=== PATIENT | male | born 1965 | race African-American/Black ===

== ENCOUNTER 2016-07-18 07:17 | Emergency (ER) | payer OTHER ==
[~2016-07-18] VITALS: Ht 182.9 cm; Wt 93.0 kg
[2016-07-18 07:17] VITALS: BP 155/96
[2016-07-18] MEDS ORDERED: IBUPROFEN 600 MG TABLET PO ONE ×2 (07:43→08:00)
== END 2016-07-18 09:07 | disposition home or self-care (01) ==
LOC: ER 07:19
DX: S16.1XXA Strain of muscle, fascia and tendon at neck level, initial encounter (principal); F43.10 Post-traumatic stress disorder, unspecified; F41.9 Anxiety disorder, unspecified; V49.9XXA Car occupant (driver) (passenger) injured in unspecified traffic accident, initial encounter; Y93.89 Activity, other specified; Y92.89 Other specified places as the place of occurrence of the external cause; Y99.9 Unspecified external cause status
CPT/HCPCS: 72050; 99284; A4606; Z7610

== ENCOUNTER 2016-08-22 00:03 | Emergency (ER) | payer SELFPAY ==
[~2016-08-22] VITALS: Ht 182.9 cm; Wt 99.8 kg
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
--- NOTE | 2016-08-22 00:56 | NUR ---
DR. LE AT BEDSIDE FOR EVAL.
[2016-08-22] MEDS ORDERED: HYDROCODONE/APAP 5/325MG 1 EACH TABLET ONE (00:57)
[2016-08-22] MEDS ORDERED: HYDROCODONE/APAP 5/325MG 1 EACH TABLET PO ONE (01:00)
--- NOTE | 2016-08-22 01:48 | NUR ---
CALLED TY TO READ XRAYS
--- NOTE | 2016-08-22 02:02 | NUR ---
Patient discharged to home in stable condition. Written and verbal after care instructions given. Patient verbalizes understanding of instruction. ambulatory with a steady gait. pt with right shoulder sling per pt request. dr. iesha mayes.
[2016-08-22 02:13] VITALS: BP 138/89
== END 2016-08-22 02:19 | disposition home or self-care (01) ==
LOC: ER 00:09
DX: S16.1XXA Strain of muscle, fascia and tendon at neck level, initial encounter (principal); S80.02XA Contusion of left knee, initial encounter; F43.10 Post-traumatic stress disorder, unspecified; V49.49XA Driver injured in collision with other motor vehicles in traffic accident, initial encounter; Y93.89 Activity, other specified; Y92.413 State road as the place of occurrence of the external cause; Y99.8 Other external cause status
CPT/HCPCS: 73030-TC; 73564-TC; A4606; Z7610

== ENCOUNTER 2016-12-01 14:22 | Emergency (ER) | payer OTHER ==
[~2016-12-01] VITALS: Ht 182.9 cm; Wt 104.3 kg
--- NOTE | 2016-12-01 14:23 | NUR ---
AAOX3, CAME TO ER C/O HEADACHE AND WEAK X 2 DAYS. SKIN IS WARM AND DRY. RESP IS EVEN AND UNLABORED WITH NAD NOTED. PT GOWNED AND PLACED ON MONITOR. AWAITING MD FOR EVAL.
--- NOTE | 2016-12-01 14:39 | NUR ---
DR FRY AT BS FOR EVAL.
--- NOTE | 2016-12-01 15:00 | NUR ---
Alex miles in [facility] - 12/01/16 at [address] reynolds at
[2016-12-01 15:09] LABS: BASOPHILS % (AUTO) 0.5 % (0.0-2.0); EOSINOPHILS % (AUTO) 0.5 % (0.0-6.0); HEMATOCRIT 46 % (39-51); HEMOGLOBIN 15.6 g/dL (13.5-17.5); LYMPHOCYTES % (AUTO) 46.8 % (20.0-44.0); MEAN CORPUSCULAR HEMOGLOBIN 31 PG (26.0-33.0); MEAN CORPUSCULAR HGB CONC 34 g/dl (31.0-36.0); MEAN CORPUSCULAR VOLUME 92 fL (80-96); MONOCYTES # (AUTO) 0.5 /CMM (0.1-1.30); MONOCYTES % (AUTO) 7.8 % (2.0-12.0); NEUTROPHILS # (AUTO) 2.9 /CMM (1.8-8.9); NEUTROPHILS % (AUTO) 44.4 % (43.0-81.0); PLATELET COUNT (AUTO) 208 /CMM (150-450); RDW COEFFICIENT OF VARIATION 13.2 (11.5-15.0); RED BLOOD CELL COUNT(AUTO) 4.96 MIL/uL (4.5-6.0); WHITE BLOOD COUNT (AUTO) 6.5 K/uL (4.3-11.0)
[2016-12-01 15:20] LABS: CALCIUM, SERUM 8.8 mg/dL (8.5-10.1); CREATININE 1.1 mg/dL (0.6-1.3)
[2016-12-01 16:04] LABS: INR 0.98 (0.87-1.13); PROTHROMBIN TIME 10.5 SECS (9.5-12.7)
[2016-12-01] MEDS ORDERED: KETOROLAC TROMETHAMINE INJ 30 MG/ML VIAL ONE (16:20)
[2016-12-01] MEDS ORDERED: KETOROLAC TROMETHAMINE INJ 60 MG/2 ML VIAL IM ONE (16:30)
--- NOTE | 2016-12-01 16:42 | NUR ---
URINE COLLECTED PER MD ORDERS, SENT TO LAB.
[2016-12-01 16:49] VITALS: BP 138/78
--- NOTE | 2016-12-01 16:57 | NUR ---
PATIENT CLEARED FOR DISCHARGE PER MD. PATIENTS VITALS REMAIN STABLE. HEADACHE RESOLVED. PATIENT GIVEN PRESCRIPTION FOR HEADACHE. DISCHARGE TEACHING PROVIDED. PATIENT VERBALIZES UNDERSTANING. PATIENT DISCHARGED HOME.
== END 2016-12-01 16:57 | disposition home or self-care (01) ==
LOC: ER 14:23
DX: R51 Headache (principal); F43.10 Post-traumatic stress disorder, unspecified; G89.29 Other chronic pain; W19.XXXA Unspecified fall, initial encounter; Y93.89 Activity, other specified; Y92.89 Other specified places as the place of occurrence of the external cause; Y99.8 Other external cause status
CPT/HCPCS: 36415; 70450-TC; 80048-TC; 85025-TC; 85730-TC; 87491; 87591; A4606; J1885; Z7610

== ENCOUNTER 2016-12-02 12:17 | Emergency (ER) | payer OTHER ==
[~2016-12-02] VITALS: Ht 180.3 cm; Wt 90.7 kg
[2016-12-02] MEDS ORDERED: ONDANSETRON HCL/PF 4 MG/2 ML VIAL ONE (12:27)
[2016-12-02] MEDS ORDERED: ONDANSETRON HCL/PF - ER 4 MG/2 ML VIAL IV ONE (12:30)
[2016-12-02 12:40] LABS: BASOPHILS # (AUTO) 0.3 /CMM (0.0-0.2); EOSINOPHILS % (AUTO) 0.7 % (0.0-6.0); HEMATOCRIT 49 % (39-51); HEMOGLOBIN 16.6 g/dL (13.5-17.5); LYMPHOCYTES # (AUTO) 2.5 /CMM (0.8-4.8); LYMPHOCYTES % (AUTO) 38.9 % (20.0-44.0); MEAN CORPUSCULAR HEMOGLOBIN 32 PG (26.0-33.0); MEAN CORPUSCULAR HGB CONC 34 g/dl (31.0-36.0); MEAN CORPUSCULAR VOLUME 92 fL (80-96); MONOCYTES # (AUTO) 0.5 /CMM (0.1-1.30); MONOCYTES % (AUTO) 7.3 % (2.0-12.0); NEUTROPHILS % (AUTO) 49.1 % (43.0-81.0); PLATELET COUNT (AUTO) 212 /CMM (150-450); RDW COEFFICIENT OF VARIATION 12.5 (11.5-15.0); RED BLOOD CELL COUNT(AUTO) 5.27 MIL/uL (4.5-6.0); WHITE BLOOD COUNT (AUTO) 6.4 K/uL (4.3-11.0)
--- NOTE | 2016-12-02 12:45 | NUR ---
PT BIB SELF C/O "FEELING WEAK" AND "POUNDING HEADACHE". NO NEURO DEFICITS NOTED. PT WAS SEEN HERE YESTERDAY AND ENCOURAGED TO INCREASE PO FLUID INTAKE. PT REPORTS HE HAS BEEN DRINKING ADEQUATE AMOUNTS OF WATER SINCE THEN AND "MY PEE IS CLEAR". WHEN ASKED AGAIN ABOUT HEADACHE, PT DENIES SEVERE HEADACHE AND REPORTS ONLY MILD PAIN. PT THEN STATED "I WANTED TO FOLLOW UP WITH THE DOCTOR FROM YESTERDAY". RESP EVEN UNLABORED. SKIN WARM NONDIAPHORETIC. AMBULATORY WITH STEADY GAIT.
[2016-12-02 13:09] LABS: CALCIUM, SERUM 8.8 mg/dL (8.5-10.1); CREATININE 1.2 mg/dL (0.6-1.3); POTASSIUM 3.7 mmol/L (3.5-5.1)
[2016-12-02 13:25] VITALS: BP 137/68
--- NOTE | 2016-12-02 13:25 | NUR ---
IV removed. Catheter intact and site benign. Pressure and 4x4 applied to site. No bleeding noted. Patient discharged to home in stable condition. Written and verbal after care instructions given. Patient verbalizes understanding of instruction.
== END 2016-12-02 13:26 | disposition home or self-care (01) ==
LOC: ER 12:18
DX: T67.5XXA Heat exhaustion, unspecified, initial encounter (principal); F43.10 Post-traumatic stress disorder, unspecified; G89.29 Other chronic pain; M54.9 Dorsalgia, unspecified; Z98.890 Other specified postprocedural states; X19.XXXA Contact with other heat and hot substances, initial encounter; Y93.89 Activity, other specified; Y92.89 Other specified places as the place of occurrence of the external cause; Y99.9 Unspecified external cause status
CPT/HCPCS: 36415; 80048-TC; 85025-TC; A4606; J2405; Z7610

== ENCOUNTER 2017-07-07 20:41 | Emergency (ER) | payer OTHER ==
[~2017-07-07] VITALS: Ht 182.9 cm; Wt 93.0 kg
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
--- NOTE | 2017-07-07 21:55 | NUR ---
LOADER MACHINE MARSII AT BEDSIDE TO EVALUATE PATIENT.
[2017-07-07] MEDS ORDERED: CYCLOBENZAPRINE 10 MG TABLET ONE (22:04)
[2017-07-07] MEDS ORDERED: IBUPROFEN 600 MG TABLET PO ONE ×2 (22:04→22:30)
--- NOTE | 2017-07-07 22:12 | NUR ---
Patient discharged to home in stable condition. Written and verbal after care instructions given. Patient verbalizes understanding of instruction. Patient is ambulatory with steady gait, instructed patient not to drive. vss. nad noted. no further complaints.
[2017-07-07 22:13] VITALS: BP 142/85
[2017-07-07] MEDS ORDERED: CYCLOBENZAPRINE 10 MG TABLET PO ONE (22:30)
== END 2017-07-07 22:14 | disposition home or self-care (01) ==
LOC: ER 20:45
DX: S39.012A Strain of muscle, fascia and tendon of lower back, initial encounter (principal); G89.29 Other chronic pain; F43.10 Post-traumatic stress disorder, unspecified; F10.10 Alcohol abuse, uncomplicated; V49.49XA Driver injured in collision with other motor vehicles in traffic accident, initial encounter; Y93.89 Activity, other specified; Y92.89 Other specified places as the place of occurrence of the external cause; Y99.8 Other external cause status
CPT/HCPCS: 99283; A4606; Z7610

== ENCOUNTER 2018-05-26 13:29 | Emergency (ER) | payer OTHER ==
[~2018-05-26] VITALS: Ht 182.9 cm; Wt 100.7 kg
[2018-05-26 13:47] VITALS: BP 162/93
== END 2018-05-26 14:56 | disposition home or self-care (01) ==
LOC: ER 13:30
DX: J06.9 Acute upper respiratory infection, unspecified (principal); F43.10 Post-traumatic stress disorder, unspecified; G89.29 Other chronic pain; Z98.890 Other specified postprocedural states; Z60.2 Problems related to living alone
CPT/HCPCS: A4606; Z7610

== ENCOUNTER 2018-07-03 15:37 | Emergency (ER) | payer OTHER ==
[~2018-07-03] VITALS: Ht 172.7 cm; Wt 76.2 kg
[2018-07-03 16:20] VITALS: BP 159/89
[2018-07-03] MEDS ORDERED: DEXAMETHASONE SOD PHOSPHATE 4 MG/ML VIAL IV ONE (17:00)
[2018-07-03] MEDS ORDERED: ALBUTEROL FS 2.5 MG/3 ML VIAL.NEB NEB ONE (17:00)
[2018-07-03] MEDS ORDERED: IPRATROPIUM NEB FS 0.5 MG/2.5 ML AMPUL.NEB NEB ONE (17:00)
[2018-07-03] MEDS ORDERED: diphenhydrAMINE HCL 50 MG/ML VIAL IV ONE (17:00)
[2018-07-03] MEDS ORDERED: KETOROLAC TROMETHAMINE INJ 30 MG/ML VIAL IV ONE (17:00)
[2018-07-03] MEDS ORDERED: METOCLOPRAMIDE HCL 10 MG/2 ML VIAL IV ONE (17:00)
[2018-07-03] MEDS ORDERED: IV NS 0.9% 1,000 ML BAG IV ONE (17:00)
[2018-07-03] MEDS ORDERED: IPRATROPIUM NEB FS 0.5 MG/2.5 ML AMPUL.NEB ONE (17:07)
[2018-07-03] MEDS ORDERED: ALBUTEROL FS 2.5 MG/3 ML VIAL.NEB ONE (17:07)
[2018-07-03] MEDS ORDERED: KETOROLAC TROMETHAMINE INJ 30 MG/ML VIAL ONE (17:13)
[2018-07-03] MEDS ORDERED: DEXAMETHASONE SOD PHOSPHATE 4 MG/ML VIAL ONE (17:13)
[2018-07-03] MEDS ORDERED: METOCLOPRAMIDE HCL 10 MG/2 ML VIAL ONE (17:13)
[2018-07-03] MEDS ORDERED: diphenhydrAMINE HCL 50 MG/ML VIAL ONE (17:19)
== END 2018-07-03 17:42 | disposition home or self-care (01) ==
LOC: ER 15:41
DX: R51 Headache (principal); R06.2 Wheezing; G89.29 Other chronic pain; M54.9 Dorsalgia, unspecified; F43.10 Post-traumatic stress disorder, unspecified; F10.10 Alcohol abuse, uncomplicated; Y90.9 Presence of alcohol in blood, level not specified; Z60.2 Problems related to living alone
CPT/HCPCS: 94640; 96374; 96375; 99283; A4606; J1100; J1200; J1885; J2765; J7030

== ENCOUNTER 2019-01-09 22:33 | Emergency (ER) | payer OTHER ==
[~2019-01-09] VITALS: Ht 182.9 cm; Wt 99.8 kg
[2019-01-09 22:58] VITALS: BP 153/67
[2019-01-09] MEDS ORDERED: FAMOTIDINE (20 MG) 20 MG TABLET ONE (23:24)
[2019-01-09] MEDS ORDERED: diphenhydrAMINE HCL 25 MG CAPSULE ONE (23:24)
[2019-01-09] MEDS ORDERED: predniSONE 20 MG TABLET ONE (23:25)
[2019-01-09] MEDS ORDERED: DIPHENHYDRAMINE HCL 12.5 MG/5 ML UDC PO ONE (23:30)
[2019-01-09] MEDS ORDERED: FAMOTIDINE (20 MG) 20 MG TABLET PO ONE (23:30)
[2019-01-09] MEDS ORDERED: predniSONE 20 MG TABLET PO ONE (23:30)
--- NOTE | 2019-01-09 23:33 | NUR ---
Patient discharged to home in stable condition. Written and verbal after care instructions given. Patient verbalizes understanding of instruction. Pt ambulatory with a steady gait
== END 2019-01-09 23:37 | disposition home or self-care (01) ==
LOC: ER 22:35
DX: S40.862A Insect bite (nonvenomous) of left upper arm, initial encounter (principal); S40.861A Insect bite (nonvenomous) of right upper arm, initial encounter; L29.9 Pruritus, unspecified; F43.10 Post-traumatic stress disorder, unspecified; G89.29 Other chronic pain; Z60.2 Problems related to living alone; W57.XXXA Bitten or stung by nonvenomous insect and other nonvenomous arthropods, initial encounter; Y93.89 Activity, other specified; Y92.89 Other specified places as the place of occurrence of the external cause; Y99.8 Other external cause status
CPT/HCPCS: 99284; J7512; Q0163 ×2

== ENCOUNTER 2019-07-03 20:01 | Emergency (ER) | payer OTHER ==
[~2019-07-03] VITALS: Ht 182.9 cm; Wt 106.1 kg
--- NOTE | 2019-07-03 20:32 | NUR ---
PT CAME TO ER C/O THROBBING HEADACHE THAT IS ON AND OFF EVERY OTHER DAY FOR PAST 2 WEEKS. PT STATES HE WENT TO AN URGENT CARE AT [place] AND WAS REFERRED TO GO TO ER TO GET CHECKED OUT. PT SAYS HE HAD BLURRY VISION, CURRENTLY NO BLURRY VISION. PT CURRENTLY STATES 9-1010 HEADACHE. AAO4X. AMBULATORY W/ STEADY GAIT. DENIES SOB OR CHEST PAIN. CONNECTED TO GEM TECHNICIAN.
--- NOTE | 2019-07-03 20:38 | NUR ---
KALE HUANG AT BEDSIDE
[2019-07-03] MEDS ORDERED: KETOROLAC TROMETHAMINE INJ 30 MG/ML VIAL ONE (20:51)
[2019-07-03] MEDS ORDERED: hydrALAZINE HCL IV 20 MG VIAL ONE (20:51)
[2019-07-03] MEDS ORDERED: hydrALAZINE HCL IV 20 MG VIAL IV ONE (21:00)
[2019-07-03] MEDS ORDERED: IV NS 0.9% 500 ML BAG IV ONE (21:00)
[2019-07-03] MEDS ORDERED: KETOROLAC TROMETHAMINE INJ 30 MG/ML VIAL IV ONE (21:00)
--- NOTE | 2019-07-03 21:04 | NUR ---
BLOOD COLLECTED AND SENT TO THE LAB
[2019-07-03 21:07] LABS: BASOPHILS % (AUTO) 0.8 % (0.0-2.0); EOSINOPHILS % (AUTO) 0.9 % (0.0-6.0); HEMATOCRIT 47 % (39-51); HEMOGLOBIN 15.9 g/dL (13.5-17.5); LYMPHOCYTES # (AUTO) 2.6 /CMM (0.8-4.8); MEAN CORPUSCULAR HGB CONC 34 g/dl (31.0-36.0); MEAN CORPUSCULAR VOLUME 95 fL (80-96); MONOCYTES # (AUTO) 0.5 /CMM (0.1-1.30); MONOCYTES % (AUTO) 8.7 % (2.0-12.0); NEUTROPHILS # (AUTO) 2.7 /CMM (1.8-8.9); NEUTROPHILS % (AUTO) 45.6 % (43.0-81.0); PLATELET COUNT (AUTO) 213 /CMM (150-450); RED BLOOD CELL COUNT(AUTO) 4.93 MIL/uL (4.5-6.0)
--- NOTE | 2019-07-03 21:18 | NUR ---
PATIENT SENT TO CT.
[2019-07-03 21:20] LABS: CALCIUM, SERUM 9.3 mg/dL (8.5-10.1); POTASSIUM 3.3 mmol/L (3.5-5.1)
--- NOTE | 2019-07-03 21:29 | NUR ---
RETURNED FROM CT
[2019-07-03] MEDS ORDERED: CLONIDINE HCL 0.1 MG TABLET ONE (22:06)
[2019-07-03] MEDS ORDERED: CLONIDINE HCL 0.1 MG TABLET PO ONE (22:30)
[2019-07-03 23:26] VITALS: BP 147/88
== END 2019-07-03 23:26 | disposition home or self-care (01) ==
LOC: ER 20:02
DX: I16.0 Hypertensive urgency (principal); F43.10 Post-traumatic stress disorder, unspecified; G89.29 Other chronic pain; Z60.2 Problems related to living alone
CPT/HCPCS: 36415; 70450; 80048; 85025; 96374; 96375; 99284; J0360; J1885; J7040

== ENCOUNTER 2022-11-15 08:45 | Emergency (ER) | payer OTHER ==
[~2022-11-15] VITALS: Ht 182.9 cm; Wt 97.5 kg
--- NOTE | 2022-11-15 08:56 | NUR ---
C/O HEADACHE AND NECK PAIN X 4 DAYS. PT DENIES TRAUMA TO HEAD.
[2022-11-15] MEDS ORDERED: diphenhydrAMINE HCL 50 MG/ML VIAL ONE (09:27)
[2022-11-15] MEDS ORDERED: METOCLOPRAMIDE HCL 10 MG/2 ML VIAL ONE (09:27)
[2022-11-15] MEDS ORDERED: diphenhydrAMINE HCL 50 MG/ML VIAL IV ONE (09:30)
[2022-11-15] MEDS ORDERED: METOCLOPRAMIDE HCL 10 MG/2 ML VIAL IV ONE (09:30)
[2022-11-15] MEDS ORDERED: IV NS 0.9% 500 ML BAG IV ONE (09:30)
--- NOTE | 2022-11-15 09:36 | NUR ---
X-RAY TECH AT BEDSIDE
[2022-11-15] MEDS ORDERED: BUTA1CAP46 PO (10:12)
[2022-11-15 10:36] VITALS: BP 142/81
--- NOTE | 2022-11-15 10:36 | NUR ---
IV removed. Catheter intact and site benign. Pressure and 4x4 applied to site. No bleeding noted.
--- NOTE | 2022-11-15 10:36 | NUR ---
Patient discharged to home in stable condition. Written and verbal after care instructions given. Patient verbalizes understanding of instruction.
== END 2022-11-15 10:37 | disposition home or self-care (01) ==
LOC: ER 08:46
DX: I10 Essential (primary) hypertension (principal); R51.9 Headache, unspecified; M54.50 Low back pain, unspecified; G89.29 Other chronic pain; Z60.2 Problems related to living alone; Z79.899 Other long term (current) drug therapy
CPT/HCPCS: 99284; 96374; 96375; J1200; J2765; J7040

== ENCOUNTER 2023-06-13 11:31 | Emergency (ER) | payer OTHER ==
[~2023-06-13] VITALS: Ht 182.9 cm; Wt 99.8 kg
[~2023-06-13 11:31] MED LIST: BUTA1CAP46 PO
[2023-06-13] MEDS ORDERED: GUAI-671 PO (13:10)
[2023-06-13 13:58] VITALS: BP 166/81; TEMP 98.2; O2SAT 98
== END 2023-06-13 13:59 | disposition home or self-care (01) ==
LOC: ER 11:34
DX: J06.9 Acute upper respiratory infection, unspecified (principal); G89.29 Other chronic pain; Z60.2 Problems related to living alone

== ENCOUNTER 2023-12-20 20:39 | Emergency (ER) | payer OTHER ==
[~2023-12-20] VITALS: Ht 182.9 cm; Wt 93.0 kg
[~2023-12-20 20:39] MED LIST changes: +GUAI-671 PO
[2023-12-20] MEDS ORDERED: PSEU120T83 PO (23:01)
[2023-12-20] MEDS ORDERED: BENZ-13 PO (23:01)
[2023-12-20] MEDS ORDERED: IBUP-1490 PO (23:01)
[2023-12-20] MEDS ORDERED: GUAI-946 PO (23:01)
[2023-12-20] MEDS ORDERED: ACET-2605 PO (23:01)
[2023-12-20] MEDS ORDERED: GUAIFENESIN 300 MG/15 ML UDC ONE (23:11)
[2023-12-20] MEDS ORDERED: BENZONATATE 100 MG CAPSULE PO ONE (23:11)
[2023-12-20] MEDS: IBUPROFEN 400 MG TABLET PO ONE (23:12)
[2023-12-20] MEDS ORDERED: ACETAMINOPHEN ES 500 MG TABLET ONE (23:12)
[2023-12-20] MEDS: BENZONATATE 100 MG CAPSULE PO PRN (23:12)
[2023-12-20] MEDS: GUAIFENESIN 300 MG/15 ML UDC PO ONE (23:12)
[2023-12-20] MEDS ORDERED: IBUPROFEN 400 MG TABLET ONE (23:12)
[2023-12-20] MEDS: ACETAMINOPHEN ES 500 MG TABLET PO ONE (23:12)
[2023-12-20 23:22] VITALS: BP 142/99; TEMP 99.7; O2SAT 100
== END 2023-12-20 23:23 | disposition home or self-care (01) ==
LOC: ER 20:45
DX: U07.1 COVID-19 (principal); G89.29 Other chronic pain; M54.9 Dorsalgia, unspecified; Z60.2 Problems related to living alone